=== PATIENT | female | born 1980 | race Caucasian/White ===

== ENCOUNTER 2024-05-10 15:28 | Outpatient (CLI) | payer OTHER, SELFPAY ==
--- NOTE | ~2024-05-10 | US_ITS ---
EXAMINATION: US soft tissue head and neck DATE: 05/10/2024 16:15 INDICATION: Personal history of other specified conditions. Hypothyroidism. TECHNIQUE: Multiple ultrasound images of the thyroid were obtained. COMPARISON: None. FINDINGS: The right thyroid lobe measures 4.2 x 2.0 x 1.3 cm. The left thyroid lobe measures 3.5 x 1.1 x 1.2 c m. The thyroid demonstrates heterogeneous hypoechogenicity. No discrete nodule. Vascularity is ruth l. There is a borderline-enlarged left submandibular lymph node. IMPRESSION: 1. Heterogeneous thyroid, likely chronic lymphocytic (Flaco) thyroiditis. 2. Borderline enlarged left submandibular lymph node, likely reactive. Reviewed, dictated and finalized at location A.
== END 2024-05-10 15:29 | disposition home or self-care (01) ==
LOC: ANHIMG 15:29
PROVIDERS: PCP Family Medicine; Visit Provider Family Medicine
DX: E07.89 Other specified disorders of thyroid (principal); R59.0 Localized enlarged lymph nodes; Z87.898 Personal history of other specified conditions
CPT/HCPCS: 76536

== ENCOUNTER 2024-10-02 00:28 | Day surgery (SDC) | payer BC, SELFPAY ==
[2024-09-20 15:17] VITALS: BMI 39.7
--- OUTSIDE RECORDS SUMMARY | 2024-10-02 00:30 | XMS_ITS | Clinical Summary ---
Author Organization [facility] Address [address] [place] [address] Phone Care Team Providers Care Plastic Boat Patcher Name Role Phone Thomas Patel MD Primary Care Provider [phone] Allergies No known active allergies Medications metoprolol tartrate (LOPRESSOR) 25 MG Tablet Take 25 mg by mouth 2 times daily. Active ibuprofen (MOTRIN) 800 MG Tablet Take 800 mg by mouth every 8 hours as needed. Active levothyroxine (SYNTHROID) 200 MCG Tablet Take 200 mcg by mouth daily. Active ferrous gluconate 324 (38 Fe) MG Tablet Take 324 mg by mouth 2 times daily. Active Immunizations Immunization Administration Dates Next Due Covid-19, Mrna, Lnp-s, Pf, 30 Mcg/0.3 Ml Dose (Kenneth beltran) 12/05/2020,11/13/2020 Social History Tobacco Use Types Packs/Day Years Used Date Smoking Tobacco: Never Smokeless Tobacco: Never Alcohol Use Standard Drinks/Week Comments Not Currently 0 (1 standard drink = 0.6 oz pur e alcohol) Comments Unknown Sex and Gender Information Value Date Recorded Sex Assigned at Not on file Legal Sex Female 10:30 PM CDT Gender Identity Not on file Sexual Orientation Not on file Last Filed Vital Signs Vital Sign Reading Time Taken Comments Blood Pressure 134/83 03/07/2021 10:03 AM CDT Pulse 81 03/07/2021 8:56 AM CDT Temperature 36.1 C (97 F) 03/07/2021 10:03 AM CDT Respiratory Rate 20 03/07/2021 10:0 3 AM CDT Oxygen Saturation 100% 03/07/2021 10: 03 AM CDT Inhaled Oxygen Concentration - - Weight 131.3 kg (289 lb 7.4 oz) 03/07/2021 5:36 AM CDT Height 180.3 cm (5' 11 ) 03/07/2021 5:36 AM CDT Body Mass Index 40.37 03/07/2021 5:36 AM CDT Plan of Treatment Health Maintenance Due Date Last Done Comments Hepatitis C Virus (HCV) Screening 1982 TdaP Immunization 1982 Pap Smear 2003 Cervical Cancer Screening (CCS) 01/11/2012 HPV/Cotest 01/11/2012 Discussion re Starting/Frequency of Mammograms 2022 Influenza Immunization (#1) 2024 SARS-COV-2 Immunization ( season) 2024 12/05/2020, 11/13/2020 Respiratory Syncytial Virus (RSV) Immunization (Adult) (1 - 1-dose 75+ series) 2057 DTaP/Tdap/Td Immunization Discontinued 12/02/2004 Hepatitis B Immunization Completed 006, 12/30/2004, 01/26/2001 Meningococcal Immunization (ACWY) Aged Out No longer eligible based on patient's age to complete this topic Pneumococcal Immunization Combined Aged Out No longer eligible based on patient's age to complete this topic Rotavirus Immunization Aged Out No lo nger eligible based on patient's age to complete this topic Insurance mo9 (moKredit) mo9 (moKredit) * Guarantor: [facility] Account Type Relation to Patient Date of Phone Billing Address Institutional Other 1868 [phone] (Work) ATTN: ERIN GUZMAN [address] [place] [address] Care Teams Plastic Boat Patcher Relationship Specialty Start Date End Date Thomas Patel MD [address] [place] [address] PCP - General Internal Medicine 03/05/21
--- OUTSIDE RECORDS SUMMARY | 2024-10-02 00:30 | XMS_ITS | Encounter Summary ---
Author Organization [facility] Address [address] [facility] [place] [address] Phone Care Team Providers Care Filenet Architect Name Role Phone Thomas Patel MD Primary Care Provider [phone] Encounter Details Date Type Department Care Team (Latest Contact Info) Description 03/03/[address] [facility] Preop/Pacu II [address] [place] [address] Елена Montoya MD [address] [address] Preop testing (Primary Dx) Social History Tobacco Use Types Packs/Day Years Used Date Smoking Tobacco: Never Assessed Comments Unknown Sex and Gender Information Value Date Recorded Sex Assigned at Not on file Legal Sex Female 10:30 PM CDT Gender Identity Not on file Sexual Orientation Not on file COVID-19 Exposure Response Date Recorded In the last month, have you been in contact with someone who was confirmed or suspected to have Coronavirus / COVID-19? No / Unsure 03/05/2021 12:18 PM CDT documented as of this encounter Plan of Treatment Not on file documented as of this encounter Results * (ABNORMAL) HEMOGLOBIN (03/05/2021 1:07 PM CDT) HEMOGLOBIN (HGB) 9.0(L) 12.0 - 15.8 g/dL 03/05/2021 1:25 PM CDT [facility] Blood Venipuncture / Unknown 03/05/2021 1:07 PM CDT 03/05/2021 1:16 PM CDT us Elaine Craig WATER TECHNICIAN, SWITCHBOARD WIRER HEMATOLOGY ORDERABLES Fi nal Result [facility] [address] [place] [address], documented in this encounter Visit Diagnoses Diagnosis Preop testing- Primary Preoperative examination, unspecified documented in this encounter Care Teams Filenet Architect Relationship Specialty Start Date End Date Thomas Patel MD [address] [place] [address] PCP - General Internal Medicine 03/05/21 documented as of this encounter
--- OUTSIDE RECORDS SUMMARY | 2024-10-02 00:30 | XMS_ITS | Encounter Summary ---
Author Organization [facility] Address [address] [facility] [place] [address] Phone Care Team Providers Care Weight Inspector Name Role Phone Thomas Patel MD Primary Care Provider [phone] Encounter Details Date Type Department Care Team (Latest Contact Info) Description 03/03/2021 Transcribe Orders [facility] Preop/Pacu II [address] [place] [address] Елена Montoya MD [address] [address] Preop testing (Primary Dx) Social [...] documented as of this encounter Results * UR TEST QUAL (03/05/2021 1:07 PM CDT) PREG TEST,MONOCLONAL Negative 03/05/2021 1:34 PM CDT [facility] Comment:Urine specimens with low specific gravity may not contain banking representative levels of HCG. If is still suspected, a first morning urine specimen should be collected 48 hours later and tested. Urine Non-Phlebotomy Collection / Unknown 03/05/2021 1:07 PM CDT 03/05/2021 1:14 PM CDT us Елена Montoya MD URINE ORDERABLES Final Result [facility] [address] [place] [address], documented in this encounter Visit Diagnoses Diagnosis Preop testing- Primary Preoperative examination, unspecified documented in this encounter Care Teams Weight Inspector Relationship Specialty Start Date End Date Thomas Patel MD [address] [place], [place] [address] PCP - General Internal Medicine 03/05/21 documented as of this encounter
--- OUTSIDE RECORDS SUMMARY | 2024-10-02 00:30 | XMS_ITS | Encounter Summary ---
Author Organization [facility] Address [address] [facility] [place] [address] Phone Care Team Providers Care Corporate Consultant Name Role Phone Thomas Patel MD Primary Care Provider [phone] Encounter Details Date Type Department Care Team (Late st Contact Info) Description 09/23/2020 Lab Requisition [facility] [address] [place] [address] Thomas Patel MD [address] [place] [address] Social History Tobacco Use Types Packs/Day Years Used Date Smoking Tobacco: Never Assessed Comments Unknown Sex and Gender Information Value Date Recorded Sex Assigned at Not on file Legal Sex Female 10:30 PM CDT Gender Identity Not on file Sexual Orientation Not on file documented as of this encounter Plan of Treatment Not on file documented as of this encounter Procedures Procedure Name Priority Date/Time Associated Diagnosis Comments CBC WITH AUTO DIFFERENTIAL STAT 09/23/2020 9:[address] COMMISSIONER COMPLETE BLOOD COUNT (CBC) WITH DIFF Routine 09/23/2020 9:[address] COMMISSIONER documented in this encounter Results * (ABNORMAL) CBC WITH AUTO DIFFERENTIAL (09/23/2020 9:[address] COMMISSIONER) WBC 8.91 4.00 - 12.00 10(3)/mcL 09/23/2020 10:[address] COMMISSIONER [facility] RBC 4.76 3.80 - 5.30 10(6)/mcL 09/23/2020 10:[address] COMMISSIONER [facility] HEMOGLOBIN (HGB) 8.6(L) 12.0 - 15.8 g/dL 09/23/2020 10:43 AM [facility] HEMATOCRIT (HCT) 30.9(L) 36.0 - 47.0 % 09/23/2020 10:43 AM [facility] MCV 64.9(L) 82.0 - 96.0 fL 09/23/2020 10:43 AM [facility] MCH 18.1(L) 26.0 - 34.0 pg 09/23/2020 10:43 AM [facility] MCHC 27.8(L) 31.0 - 36.0 g/dL 09/23/2020 10:43 AM [facility] PLATELET COUNT 527(H) 140 - 440 10(3)/[facility] 09/23/2020 10:43 AM [facility] RDW 23.9(H) 11.8 - 15.5 % 09/23/2020 10:43 AM [facility] MPV 9.7 9.7 - 12.4 fL 09/23/2020 10:43 AM [facility] NEUTROPHILS 60.8 47.0 - 73.0 % 09/23/2020 10:43 AM [facility] LYMPHOCYTES 29.6 18.0 - 42.0 % 09/23/2020 10:43 AM [facility] MONOCYTES 7.4 4.0 - 12.0 % 09/23/2020 10:43 AM [facility] EOSINOPHILS 1.3 0.0 - 5.0 % 09/23/2020 10:43 AM [facility] BASOPHILS 0.9 0.0 - 1.0 % 09/23/2020 10:43 AM [facility] ABSOLUTE NEUTROPHILS 5.41 1.60 - 7.70 10(3)/mcL 09/23/2020 10:43 AM [facility] ABSOLUTE LYMPHOCYTES 2.64 1.30 - 3.20 10(3)/mcL 09/23/2020 10:43 AM [facility] ABSOLUTE MONOCYTES 0.66 0.20 - 1.00 10(3)/[facility] 09/23/2020 10:[address] COMMISSIONER [facility] ABSOLUTE EOSINOPHIL 0.12 0.00 - 0.40 10(3)/mcL 09/23/2020 10:[address] COMMISSIONER [facility] ABSOLUTE BASOPHILS 0.08 0.00 - 0.10 10(3)/mcL 09/23/2020 10:[address] COMMISSIONER [facility] NRBC PER 100 WBC 0 09/24/19 10:[address] COMMISSIONER [facility] RESULTS ARE CONSISTENT WITH PERIPHERAL SMEAR REVIEW Yes 09/23/2020 10:43 AM [facility] RBC MORPHOLOGY CONSISTENT WITH INDICES Yes 09/23/2020 10:43 AM [facility] POIKILOCYTOSIS 2+ 09/23/2020 10:43 AM [facility] TARGET Present 09/23/2020 10:43 AM [facility] Blood No Phlebotomy Charged / Unknown 09/23/2020 9:[address] COMMISSIONER 09/23/2020 9:[address] COMMISSIONER us Thomas Patel MD HEMATOLOGY ORDERABLES Final Res ult [facility] [address] [place] [address], documented in this encounter Visit Diagnoses Not on filedocumented in this encounter Care Teams Corporate Consultant Relationship Specialty Start Date End Date Thomas Patel MD [address] [place], [place] [address] PCP - General Internal Medicine 03/05/21 documented as of this encounter
--- OUTSIDE RECORDS SUMMARY | 2024-10-02 00:30 | XMS_ITS | Encounter Summary ---
Author Organization [facility] Address [address] [facility] [place] [address] Phone Care Team Providers Care Cafeteria Helper Name Role Phone Thomas Patel MD Primary Care Provider [phone] Encounter Details Date Type Department Care Team (Late st Contact Info) Description 03/03/2021 Transcribe Orders [facility] Pre[facility]Pacu II [address] [place] [address] Елена Montoya MD [address] [address] Social History Tobacco Use Types Packs/Day Years [...] on file documented as of this encounter Visit Diagnoses Not on filedocumented in this encounter Care Teams Cafeteria Helper Relationship Specialty Start Date End Date Thomas Patel MD [address] [place], [place] [address] PCP - General Internal Medicine 03/05/21 documented as of this encounter
[2024-10-02 08:09] VITALS: BP 127/85; PULSE 72; RESP 16; TEMP 35.9; O2SAT 100; BMI 40.0
[2024-10-02 08:16] LABS: BEDSIDEPREGUCG Negative (Negative)
--- NOTE | 2024-10-02 08:39 | PM.IMHP ---
H&P: HPI History of Present Illness Date/Time: 10/02/24 08:39 Chief Complaint: History of Crohn's disease -family history of colorectal cancer Narrative: the patient had an apparent right hemicolectomy at age 23, for Crohn's disease. She is currently not receiving any treatment and is asymptomatic from the GI standpoint. In addition, her father of colorectal cancer at age 65. This is her 1st colonoscopy. Review of Systems Review of Systems: All systems reviewed & are unremarkable except as noted in HPI and below [facility] Past Medical History Medical History (Updated 09/25/24 @ 09:22 by Luis Alfredo Sesay DO) Edema Hypertension Family History Family History (Updated 03/21/24 @ 11:19 by Rhona Goff CMA) Father Diabetes mellitus Hypertension Social History Social History (Updated 03/21/24 @ 11:17 by Rhona Goff CMA) Smoking status: Never smoker Alcohol intake: never Substance use: never Substance use type: does not use Other substance usage details: Answered yes on have you ever given yourself drugs with a needle Living arrangements: alone Meds Home Medications and Allergies Home Medications ?Medication ?Instructions ?Recorded ?Confirmed ?Type furosemide 20 mg tablet 20 mg PO DAILY #90 tabs 06/05/24 10/02/24 Rx levothyroxine 300 mcg tablet 300 mcg PO DAILY #90 tabs 06/05/24 10/02/24 Rx metformin 500 mg tablet 500 mg PO DAILY #180 tabs 06/05/24 10/02/24 Rx metoprolol tartrate 25 mg tablet 25 mg PO BID #180 tabs 06/05/24 10/02/24 Rx Allergies Allergy/AdvReac Type Severity Reaction Status Date / Time No Known Allergies Allergy Verified 10/02/24 08:07 Vital Signs Vital Signs - 24 hr 10/02/24 08:09 Temperature 96.7 F L Pulse Rate 72 Respiratory Rate 16 Blood Pressure 127/85 Pulse Oximetry 100 Oxygen Delivery Room Air Exam Const: General: cooperative and healthy appearing Resp: Effort & Inspection: normal respiratory effort and able to speak in complete sentences Auscultation: clear to auscultation bilaterally Cardio: Rate: regular rate Rhythm: regular rhythm GI: Inspection: normal to inspection GI Palp: No No hepatosplenomegaly present Auscultation: normal bowel sounds Rectal Exam: deferred Skin: General skin exam: normal color Psych: Appearance: grossly normal Mental Status: mental status grossly normal Assessment and Plan Assessment and plan (1) History of Crohn's disease: Code(s): Z87.19 - Personal history of other diseases of the digestive system Status: Acute Assessment and Plan: The patient is deemed a good candidate for the procedure. Consent signed. Will proceed.
--- NOTE | 2024-10-02 08:42 | WPDANESEPPF ---
Anes - Initial Pre Proc Eval Procedure: Operation Date: 10/02/24 09:30 Proposed Procedures p Colonoscopy - Yousuf Coy MD Date/Time: 10/02/24 08:42 Surgeon: Yousuf Coy MD Pre Op Diagnosis: hx of diseases of digestive system Patient Data Age: 44 Gender: F Height: 1.8 m Weight: 130.3 kg Last Vital Signs Temp 35.9 C L 10/02/24 08:09 Pulse 72 10/02/24 08:09 Resp 16 10/02/24 08:09 BP 127/85 10/02/24 08:09 Pulse Ox 100 10/02/24 08:09 O2 Del Method Room Air 10/02/24 08:09 Allergies Allergy/AdvReac Type Severity Reaction Status Date / Time No Known Allergies Allergy Verified 10/02/24 08:07 Home Medications ?Medication ?Instructions ?Recorded ?Confirmed ?Type furosemide 20 mg tablet 20 mg PO DAILY #90 tabs 06/05/24 10/02/24 Rx levothyroxine 300 mcg tablet 300 mcg PO DAILY #90 tabs 06/05/24 10/02/24 Rx metformin 500 mg tablet 500 mg PO DAILY #180 tabs 06/05/24 10/02/24 Rx metoprolol tartrate 25 mg tablet 25 mg PO BID #180 tabs 06/05/24 10/02/24 Rx Laboratory Tests 10/02/24 08:09 POC Urine HCG, Qual Negative (Negative) Patient hx anesthesia problems: none Family hx anesthesia problems: none Results Review: All pre-operative results and documents have been reviewed as part of the pre-operative evaluation. [facility] Past Medical History Medical History (Updated 10/02/24 @ 08:42 by Dat Rowan MD) History of Crohn's disease Edema Hypertension Surgical History Surgical History (Updated 10/02/24 @ 08:42 by Dat Rowan MD) History of colon resection Family History Family History (Updated 03/21/24 @ 11:19 by Rhona Goff CMA) Father Diabetes mellitus Hypertension Social History Social History (Updated 03/21/24 @ 11:17 by Rhona Goff CMA) Smoking status: Never smoker Alcohol intake: never Substance use: never Substance use type: does not use Other substance usage details: Answered yes on have you ever given yourself drugs with a needle Living arrangements: alone Anes - Eval Final PreProcedure Day of Procedure 10/02/24 08:42 Patient weight: morbidly obese Heart: regular rate and rhythm Lungs: clear to auscultation Airway: Mallampati scale class II Neurological: alert and oriented Last oral intake: >/= 8 hours ASA classification: III Emergent: no Anesthetic plan: proceed Anesthesia type and monitoring: general GIVS and standard monitoring Results Review: All pre-operative results and documents have been reviewed as part of the pre-operative evaluation. Informed Consent: The patient's anesthetic plan and its attendant risks and benefits were discussed with the patient/family/POA. Questions were solicited and answers provided to the satisfaction of the patient/family/POA.
[2024-10-02] MEDS: LACTATED RINGERS 1,000 ML 150 ML IV CONT (08:46)
[2024-10-02 09:08] VITALS: BP 123/82; PULSE 74; RESP 20; O2SAT 96
[2024-10-02 09:18] VITALS: BP 127/85; PULSE 68; RESP 20; O2SAT 97
[2024-10-02 09:28] VITALS: BP 108/80; PULSE 72; RESP 18; O2SAT 99
== END 2024-10-02 09:32 | disposition home or self-care (01) ==
PROVIDERS: Anesthesiology; PCP Family Medicine; Referring Provider Family Medicine; Visit Provider Internal Medicine Gastroenterology
PROC: 0DJD8ZZ Inspection of Lower Intestinal Tract, Via Natural or Artificial Opening Endoscopic (ICD-10-PCS; CPT 45378; principal; 2024-10-02 09:30)
DX: Z12.11 Encounter for screening for malignant neoplasm of colon (principal); I10 Essential (primary) hypertension; E66.01 Morbid (severe) obesity due to excess calories; Z68.41 Body mass index [BMI] 40.0-44.9, adult; Z79.84 Long term (current) use of oral hypoglycemic drugs; Z98.890 Other specified postprocedural states; Z98.0 Intestinal bypass and anastomosis status; Z90.49 Acquired absence of other specified parts of digestive tract; Z87.19 Personal history of other diseases of the digestive system; Z80.0 Family history of malignant neoplasm of digestive organs
CPT/HCPCS: 45378; J2704; J7120

== ENCOUNTER 2024-10-12 09:45 | Outpatient (CLI) | payer BC, SELFPAY ==
--- NOTE | ~2024-10-12 | MR_ITS ---
EXAMINATION: MR ankle LT wo con, MR foot LT wo con DATE: 10/12/2024 11:00 INDICATION: Left foot pain TECHNIQUE: 1. Magnetic resonance imaging (MRI) of the affected ankle/hindfoot was performed without intravenous contrast. Sequences included sagittal, coronal, and axial PD-weighted FSE and PD-weighted FS FSE. 2. MRI of the affected fore/mid foot was performed without intravenous contrast. Sequences included s agittal T1-weighted FSE, sagittal fluid sensitive FSE STIR, coronal PD-weighted FS FSE, coronal T1-we ighted FSE, axial PD-weighted FS FSE, and axial PD-weighted FSE. COMPARISON: None. FINDINGS: Medial ankle ligaments: Chronic sprains of the deep and superficial deltoid ligament which appear thickened with slightly dis organized appearance to the ligament fibers and with heterotopic ossification at the sites of osseous attachment. No significant surrounding edema to suggest acute injury. Lateral ankle ligaments: Interstitial scarring bullous chronic sprain of the anterior talofibular ligament with some heterotop ic ossification at the talar insertion of the ligament. The Anterior and posterior inferior tibiofibu lar, posterior talofibular as well as the calcaneofibular ligaments are normal. Tendons: Small enthesophytes and minimal enthesopathic ossification at the distal insertion of the. Achilles t endon. There is minimal increased signal in the distal tendon consistent with mild tendinosis. Mild t enosynovitis along the normal-appearing tibialis posterior and flexor digitorum longus tendons. The f lexor hallucis longus tendon is normal. Fusiform thickening consistent with mild tendinosis of the pe roneus longus tendon stenting at the level of the tip of the lateral malleolus. Moderate tendinopathy and longitudinal split tearing of the peroneus brevis tendon beginning above level of the retromalle olar groove and extending distally to the level of the anterior process of the calcaneus. The extenso r tendons of the foot/ankle are normal. Plantar fascia: Mild enthesopathy at the calcaneal origin of the central component of the plantar aponeurosis. No ass ociated marrow or surrounding soft tissue edema to suggest acute plantar fasciitis. Bones/other: Mild hallux valgus. Associated bunion with mild cystic and hypertrophic change at the medial head of the first metatarsal. Bone alignment is otherwise normal. No fracture or pathologic marrow replacing process. Polyarticular osteoarthritis, and mild to moderate severity at the first metatarsophalangeal joint and with high-grade chondromalacia and subarticular edema and cystlike changes at the third an d fourth tarsal metatarsal and naviculocuneiform articulations. Additional mild osteoarthritis at rem aining tarsal metatarsal joints and several of the interphalangeal joints. Lisfranc ligament complex and collateral ligament complex at the tarsometatarsal joints are normal. Intrinsic musculature of th e foot is unremarkable. Fluid: Physiologic amount fluid in the joint spaces. No other abnormal fluid collections. IMPRESSION: 1. Scarring consistent with chronic sprains of the deep and superficial deltoid ligament and anterior talofibular ligament. 2. Tendinopathy of the peroneus longus and brevis tendons with longitudinal split tear of the peroneu s brevis tendon. 3. 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 4. Mild hallux valgus with mild bunion. 5. Minimal Achilles and plantar calcaneal enthesopathy. Reviewed, dictated and finalized at location B. IMPRESSION: 1. Scarring consistent with chronic sprains of the deep and superficial deltoid ligament and anterior talofibular ligament. 2. Tendinopathy of the peroneus longus and brevis tendons with longitudinal spl it tear of the peroneus brevis tendon. 3. 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 4. Mild hallux valgus with mild bunion. 5. Minimal Achilles and plantar calcaneal enthesopathy.
== END 2024-10-12 09:46 | disposition home or self-care (01) ==
PROVIDERS: PCP Family Medicine; Visit Provider Family Medicine
DX: M20.12 Hallux valgus (acquired), left foot (principal); M19.072 Primary osteoarthritis, left ankle and foot
CPT/HCPCS: 73718; 73721

== ENCOUNTER 2025-02-15 07:10 | Outpatient (CLI) | payer BC, SELFPAY ==
--- NOTE | ~2025-02-15 | US_ITS ---
US abdomen limited 02/15/2025 08:20 Indication: Umbilical hernia without obstruction or gangrene Procedure: Ultrasound of the abdominal wall (region of palpable abnormality right. Comparison: No prior studies for comparison. Findings: At the site of clinical concern, there is focal defect in the abdominal wall with herniatio n of heterogeneous soft tissue. The herniated soft tissue demonstrates motility during the examinatio n with changes in position and Valsalva maneuver. Herniated component measures 4.6 x 4.1 x 2.2 cm. Th e appearance is suggestive of a herniated fat and/or soft tissue without definite palpable peristalsi s identified. No definite fluid collection. Impression: 1: Focal abdominal wall defect with herniation of heterogeneous soft tissue demonstrating motility du ring the examination, most likely representing abdominal wall hernia containing fat or possibly other soft tissue. Differential diagnosis includes bowel containing hernia, incarcerated fat and other abd ominal wall mass with motion transmitted through defect. Recommend correlation with clinical findings to confirm hernia location. Recommend CT abdomen pelvis with contrast. Consider surgical referral. Reviewed, dictated and finalized at location A. Impression: 1: Focal abdominal wall defect with herniation of heterogeneous soft tissue dem onstrating motility during the examination, most likely representing abdominal wall hernia containing fat or possibly other soft tissue. Differential diagnosi s includes bowel containing hernia, incarcerated fat and other abdominal wall m ass with motion transmitted through defect. Recommend correlation with clinical findings to confirm hernia location. Recommend CT abdomen pelvis with contrast . Consider surgical referral.
--- OUTSIDE RECORDS SUMMARY | 2025-02-15 07:13 | XMS_ITS | Patient Health Record ---
Author Organization [facility] Address [address] [place], [place] [address] Care Team Providers Care Ui Architect Name Role Phone DOMINICK Slaughter Unavailable [phone] Sangeeta Vicente Unavailable Unavailable Reason For Referral No Information Medications Medication SIG (Take, Route, Frequency, Duration) Notes Start Date End Date Status buprenorphine 2 MG / naloxone 0.5 MG Sublingual Film [Suboxone] buprenorphine 2 MG / naloxone 0.5 MG Sublingual Film [Suboxone]Original Medicationbuprenorphine 2 MG / naloxone 0.5 MG Sublingual Film [Suboxone] *Reorder from [employer]UC[employer]Me for eRx and Interaction Alerts* 2 Active fexofenadine hydrochloride 180 MG Oral Tablet [Rossy] ORAL fexofenadine hydrochloride 180 MG Oral Tablet [Rossy]Original Medicationfexofenadine hydrochloride 180 MG Oral Tablet [Rossy] *Reorder from [employer]UCESAlertMe for eRx and Interaction Alerts* 2 Active Plan Of Treatment No Information
--- OUTSIDE RECORDS SUMMARY | 2025-02-15 07:13 | XMS_ITS | Patient Health Record ---
Author Organization [facility] Address [address] [place] [address] Support Name Relationship Address Phone Elaine Barillas Emergency Contact [address] [facility], [address] Kaila Barillas Guarantor Unknown Reason For Referral No Information Plan Of Treatment No Information
--- OUTSIDE RECORDS SUMMARY | 2025-02-15 07:13 | XMS_ITS | Encounter Summary ---
Author Organization [facility] Address [address] [facility] [place] [address] Phone Care Team Providers Care Sloop Captain Name Role Phone Thomas Patel MD Primary Care Provider [phone] Encounter Details Date Type Department Care Team (Latest Contact Info) Description 03/03/2021 Transcribe Orders [facility] Preop/Pacu II [address] [place] [address] Елена Montoya MD [address] [address] Preop testing (Primary Dx) Social [...] PREG TEST,MONOCLONAL Negative 03/05/2021 1:34 PM CDT [facility] Comment:Urine specimens with low specific gravity may not contain bilingual inside sales representative levels of HCG. If is still suspected, a first morning urine specimen should be collected 48 hours later and tested. Urine Non-Phlebotomy Collection / Unknown 03/05/2021 1:07 PM CDT 03/05/2021 1:14 PM CDT us Елена Montoya MD URINE ORDERABLES Final Result [facility] [address] [place] [address], documented in this encounter Visit Diagnoses Diagnosis Preop testing- Primary Preoperative examination, unspecified documented in this encounter Care Teams Sloop Captain Relationship Specialty Start Date End Date Thomas Patel MD [address] [place], [place] [address] PCP - General Internal Medicine 03/05/21 documented as of this encounter
--- OUTSIDE RECORDS SUMMARY | 2025-02-15 07:13 | XMS_ITS | Clinical Summary ---
Author Organization [facility] Address [address] [place] [address] Phone Care Team Providers Care Assessment Coordinator Name Role Phone Thomas Patel MD Primary Care Provider [phone] Allergies No known active allergies Medications metoprolol [...] 5:36 AM CDT Height 180.3 cm (5' 11) 03/07/2021 5:36 AM CDT Body Mass Index 40.37 03/07/2021 5:36 AM CDT Plan of Treatment Health Maintenance Due Date Last Done Comments Hepatitis C Virus (HCV) Screening 1982 TdaP Immunization 1982 Human Papillomavirus (HPV) Immunization (1 - 3-dose series) 1997 Pap Smear 2003 Cervical Cancer Screening (CCS) 01/11/2012 HPV/Cotest 01/11/2012 SARS-COV-2 Immunization ( season) 2024 12/05/2020, 11/13/2020 Influenza Immunization (#1) 2025 Respiratory Syncytial Virus (RSV) Immunization (Adult) (1 [...] patient's age to complete this topic Insurance [employer] * Guarantor: [facility] Account Type Relation to Patient Date of Phone Billing Address Institutional Other 1868 [phone] (Work) ATTN: ERIN GUZMAN [address] [place] [address] Care Teams Assessment Coordinator Relationship Specialty Start Date End Date Thomas Patel MD [address] [place] [address] PCP - General Internal Medicine 03/05/21
--- OUTSIDE RECORDS SUMMARY | 2025-02-15 07:13 | XMS_ITS | Encounter Summary ---
Author Organization [facility] Address [address] [facility] [address] Phone Care Team Providers Care Lemon Picker Name Role Phone Thomas Patel MD Primary Care Provider [phone] Encounter Details Date Type Department Care Team (Late st Contact Info) Description 09/23/2020 Lab Requisition [facility] [address] [place] [address] Thomas Patel MD [address] [place] [address] Social History Tobacco Use Types [...] WITH AUTO DIFFERENTIAL STAT 09/23/2020 9:00 AM TERMITE TREATER COMPLETE BLOOD COUNT (CBC) WITH DIFF Routine 09/23/2020 9:00 AM TERMITE TREATER documented in this encounter Results * (ABNORMAL) CBC WITH AUTO DIFFERENTIAL (09/23/2020 9:00 AM TERMITE TREATER) WBC 8.91 4.00 - 12.00 10(3)/mcL 09/23/2020 10:43 AM TERMITE TREATER [facility] RBC 4.76 3.80 - 5.30 10(6)/mcL 09/23/2020 10:43 AM TERMITE TREATER [facility] HEMOGLOBIN (HGB) 8.6(L) 12.0 - 15.8 g/dL 09/23/2020 10:43 AM [facility] HEMATOCRIT (HCT) 30.9(L) 36.0 - 47.0 % 09/23/2020 10:43 AM [facility] MCV 64.9(L) 82.0 - 96.0 fL 09/23/2020 10:43 AM [facility] MCH 18.1(L) 26.0 - 34.0 pg 09/23/2020 10:43 AM [facility] MCHC 27.8(L) 31.0 - 36.0 g/dL 09/23/2020 10:43 AM [facility] PLATELET COUNT 527(H) 140 - 440 10(3)/[facility] 09/23/2020 10:43 AM [facility] RDW 23.9(H) 11.8 - 15.5 % 09/23/2020 10:43 AM [facility] MPV 9.7 9.7 - 12.4 fL 09/23/2020 10:43 AM [facility] NEUTROPHILS 60.8 47.0 - 73.0 % 09/23/2020 10:43 AM [facility] LYMPHOCYTES 29.6 18.0 - 42.0 % 09/23/2020 10:43 AM [facility] MONOCYTES 7.4 4.0 - 12.0 % 09/23/2020 10:43 AM [facility] EOSINOPHILS 1.3 0.0 - 5.0 % 09/23/2020 10:43 AM [facility] BASOPHILS 0.9 0.0 - 1.0 % 09/23/2020 10:43 AM [facility] ABSOLUTE NEUTROPHILS 5.41 1.60 - 7.70 10(3)/mcL 09/23/2020 10:43 AM [facility] ABSOLUTE LYMPHOCYTES 2.64 1.30 - 3.20 10(3)/mcL 09/23/2020 10:43 AM [facility] ABSOLUTE MONOCYTES 0.66 0.20 - 1.00 10(3)/[facility] 09/23/2020 10:43 AM TERMITE TREATER [facility] ABSOLUTE EOSINOPHIL 0.12 0.00 - 0.40 10(3)/mcL 09/23/2020 10:43 AM TERMITE TREATER [facility] ABSOLUTE BASOPHILS 0.08 0.00 - 0.10 10(3)/mcL 09/23/2020 10:43 AM TERMITE TREATER [facility] NRBC PER 100 WBC 0 09/24/19 10:43 AM TERMITE TREATER [facility] RESULTS ARE CONSISTENT WITH PERIPHERAL SMEAR REVIEW Yes 09/23/2020 10:43 AM [facility] RBC MORPHOLOGY CONSISTENT WITH INDICES Yes 09/23/2020 10:43 AM [facility] POIKILOCYTOSIS 2+ 09/23/2020 10:43 AM [facility] TARGET Present 09/23/2020 10:43 AM [facility] Blood No Phlebotomy Charged / Unknown 09/23/2020 9:00 AM TERMITE TREATER 09/23/2020 9:52 AM TERMITE TREATER us Thomas Patel MD HEMATOLOGY ORDERABLES Final Res ult [facility] [address] [place] [address], documented in this encounter Visit Diagnoses Not on filedocumented in this encounter Care Teams Lemon Picker Relationship Specialty Start Date End Date Thomas Patel MD [address] [place], [place] [address] PCP - General Internal Medicine 03/05/21 documented as of this encounter
--- OUTSIDE RECORDS SUMMARY | 2025-02-15 07:14 | XMS_ITS | Encounter Summary ---
Author Organization [facility] Address [address] [facility] [place] [address] Phone Care Team Providers Care Automotive Artist Name Role Phone Thomas Patel MD Primary Care Provider [phone] Encounter Details Date Type Department Care Team (Latest Contact Info) Description 03/03/2021 Transcribe Orders [facility] Preop/Pacu II [address] [place] [address] Елена Montoya MD [address] [address] Preop testing (Primary Dx) Social [...] - 15.8 g/dL 03/05/2021 1:25 PM CDT [facility] Blood Venipuncture / Unknown 03/05/2021 1:07 PM CDT 03/05/2021 1:16 PM CDT us Elaine Craig ASSORTER, C.O.D. CLERK HEMATOLOGY ORDERABLES Fi nal Result [facility] [address] [place] [address], documented in this encounter Visit Diagnoses Diagnosis Preop testing- Primary Preoperative examination, unspecified documented in this encounter Care Teams Automotive Artist Relationship Specialty Start Date End Date Thomas Patel MD [address] [place] [address] PCP - General Internal Medicine 03/05/21 documented as of this encounter
--- OUTSIDE RECORDS SUMMARY | 2025-02-15 07:14 | XMS_ITS | Encounter Summary ---
Author Organization [facility] Address [address] [facility] [place] [address] Phone Care Team Providers Care Diabetic Educator Name Role Phone Thomas Patel MD Primary Care Provider [phone] Encounter Details Date Type Department Care Team (Late st Contact Info) Description 03/03/2021 [facility] [address] [place] [address] Елена Montoya MD [address] [address] Social History Tobacco Use Types [...] on filedocumented in this encounter Care Teams Diabetic Educator Relationship Specialty Start Date End Date Thomas Patel MD [address] [place], [place] [address] PCP - General Internal Medicine 03/05/21 documented as of this encounter
== END 2025-02-15 07:11 | disposition home or self-care (01) ==
PROVIDERS: PCP Family Medicine; Visit Provider Nurse Practitioner Family
DX: K42.9 Umbilical hernia without obstruction or gangrene (principal)
CPT/HCPCS: 76705

== ENCOUNTER 2025-02-22 12:53 | Outpatient (CLI) | payer BC, SELFPAY ==
--- NOTE | 2025-02-22 | ECG_ITS ---
Test Date: 2025-02-22 13:14:38 Measurements Intervals [place] Rate: 61 P: 29 MN: 156 QRS: 0 QRSD: 90 T: 7 QT: 412 QTc: 417 Interpretive Statements SINUS RHYTHM INCOMPLETE RIGHT BUNDLE BRANCH BLOCK LOW QRS VOLTAGE IN PRECORDIAL LEADS CONSIDER INFERIOR INFARCT, AGE INDETERMINATE BASELINE ARTIFACT- V1-V2 ABNORMAL ECG No previous ECG available for comparison Electronically Signed On 02-22-2025 13:32:17 CDT by Master Lemus D.O.
--- OUTSIDE RECORDS SUMMARY | 2025-02-22 13:02 | XMS_ITS | Encounter Summary ---
Author Organization [facility] Address [address] [facility] [place] [address] Phone Care Team Providers Care Grader Green Meat Name Role Phone Thomas Patel MD Primary Care Provider [phone] Encounter Details Date Type Department Care Team (Late st Contact Info) Description 09/23/2020 Lab Requisition [facility] [address] [place] [address] Thomas Patel MD [address] [place] [address] Social History Tobacco Use Types [...] WITH AUTO DIFFERENTIAL STAT 09/23/2020 9:00 AM SALES FLOOR ASSOCIATE COMPLETE BLOOD COUNT (CBC) WITH DIFF Routine 09/23/2020 9:00 AM SALES FLOOR ASSOCIATE documented in this encounter Results * (ABNORMAL) CBC WITH AUTO DIFFERENTIAL (09/23/2020 9:00 AM SALES FLOOR ASSOCIATE) WBC 8.91 4.00 - 12.00 10(3)/mcL 09/23/2020 10:43 AM SALES FLOOR ASSOCIATE [facility] RBC 4.76 3.80 - 5.30 10(6)/mcL 09/23/2020 10:43 AM SALES FLOOR ASSOCIATE [facility] HEMOGLOBIN (HGB) 8.6(L) 12.0 - 15.8 g/dL 09/23/2020 10:43 AM [facility] HEMATOCRIT (HCT) 30.9(L) 36.0 - 47.0 % 09/23/2020 10:43 AM [facility] MCV 64.9(L) 82.0 - 96.0 fL 09/23/2020 10:43 AM [facility] MCH 18.1(L) 26.0 - 34.0 pg 09/23/2020 10:43 AM [facility] MCHC 27.8(L) 31.0 - 36.0 g/dL 09/23/2020 10:43 AM [facility] PLATELET COUNT 527(H) 140 - 440 10(3)/[facility] 09/23/2020 10:43 AM [facility] RDW 23.9(H) 11.8 - 15.5 % 09/23/2020 10:43 AM [facility] MPV 9.7 9.7 - 12.4 fL 09/23/2020 10:43 AM [facility] NEUTROPHILS 60.8 47.0 - 73.0 % 09/23/2020 10:43 AM [facility] LYMPHOCYTES 29.6 18.0 - 42.0 % 09/23/2020 10:43 AM [facility] MONOCYTES 7.4 4.0 - 12.0 % 09/23/2020 10:43 AM [facility] EOSINOPHILS 1.3 0.0 - 5.0 % 09/23/2020 10:43 AM [facility] BASOPHILS 0.9 0.0 - 1.0 % 09/23/2020 10:43 AM [facility] ABSOLUTE NEUTROPHILS 5.41 1.60 - 7.70 10(3)/mcL 09/23/2020 10:43 AM [facility] ABSOLUTE LYMPHOCYTES 2.64 1.30 - 3.20 10(3)/mcL 09/23/2020 10:43 AM [facility] ABSOLUTE MONOCYTES 0.66 0.20 - 1.00 10(3)/[facility] 09/23/2020 10:43 AM SALES FLOOR ASSOCIATE [facility] ABSOLUTE EOSINOPHIL 0.12 0.00 - 0.40 10(3)/mcL 09/23/2020 10:43 AM SALES FLOOR ASSOCIATE [facility] ABSOLUTE BASOPHILS 0.08 0.00 - 0.10 10(3)/mcL 09/23/2020 10:43 AM SALES FLOOR ASSOCIATE [facility] NRBC PER 100 WBC 0 09/24/19 10:43 AM SALES FLOOR ASSOCIATE [facility] RESULTS ARE CONSISTENT WITH PERIPHERAL SMEAR REVIEW Yes 09/23/2020 10:43 AM [facility] RBC MORPHOLOGY CONSISTENT WITH INDICES Yes 09/23/2020 10:43 AM [facility] POIKILOCYTOSIS 2+ 09/23/2020 10:43 AM [facility] TARGET Present 09/23/2020 10:43 AM [facility] Blood No Phlebotomy Charged / Unknown 09/23/2020 9:00 AM SALES FLOOR ASSOCIATE 09/23/2020 9:52 AM SALES FLOOR ASSOCIATE us Thomas Patel MD HEMATOLOGY ORDERABLES Final Res ult [facility] [address] [place] [address], documented in this encounter Visit Diagnoses Not on filedocumented in this encounter Care Teams Grader Green Meat Relationship Specialty Start Date End Date Thomas Patel MD [address] [place], [place] [address] PCP - General Internal Medicine 03/05/21 documented as of this encounter
--- OUTSIDE RECORDS SUMMARY | 2025-02-22 13:02 | XMS_ITS | Encounter Summary ---
Author Organization [facility] Address [address] [facility] [place] [address] Phone Care Team Providers Care Ground Control Approach Technician Name Role Phone Thomas Patel MD Primary Care Provider [phone] Encounter Details Date Type Department Care Team (Latest Contact Info) Description 03/03/2021 Transcribe Orders [facility] Preop/Pacu II [address] [place] [address] Елена Montoya MD [address] [address] Preop testing (Primary Dx) Social [...] PREG TEST,MONOCLONAL Negative 03/05/2021 1:[address] [facility] Comment:Urine specimens with low specific gravity may not contain inside sales account representative levels of HCG. If is still suspected, a first morning urine specimen should be collected 48 hours later and tested. Urine Non-Phlebotomy Collection / Unknown 03/05/2021 1:07 PM CDT 03/05/2021 1:14 PM CDT us Елена Montoya MD URINE ORDERABLES Final Result [facility] [address] [place] [address], documented in this encounter Visit Diagnoses Diagnosis Preop testing- Primary Preoperative examination, unspecified documented in this encounter Care Teams Ground Control Approach Technician Relationship Specialty Start Date End Date Thomas Patel MD [address] [place], [place] [address] PCP - General Internal Medicine 03/05/21 documented as of this encounter
--- OUTSIDE RECORDS SUMMARY | 2025-02-22 13:02 | XMS_ITS | Encounter Summary ---
Author Organization [facility] Address [address] [facility] [place] [address] Phone Care Team Providers Care Stars Coordinator Name Role Phone Thomas Patel MD Primary Care Provider [phone] Encounter Details Date Type Department Care Team (Late st Contact Info) Description 03/03/2021 Trans[facility] [address] [place] [address] Елена Montoya MD [address] [address] Social History Tobacco Use Types [...] on filedocumented in this encounter Care Teams Stars Coordinator Relationship Specialty Start Date End Date Thomas Patel MD [address] [place], [place] [address] PCP - General Internal Medicine 03/05/21 documented as of this encounter
--- OUTSIDE RECORDS SUMMARY | 2025-02-22 13:02 | XMS_ITS | Clinical Summary ---
Author Organization [facility] Address [address] [place] [address] Phone Care Team Providers Care Personal Care Worker Name Role Phone Thomas Patel MD Primary Care Provider [phone] Allergies No known active allergies Medications metoprolol [...] 1982 TdaP Immunization 1982 Pap Smear 2003 Human Papillomavirus (HPV) Immunization (1 - 3-dose SCDM series) 2009 Cervical Cancer Screening (CCS) 01/11/2012 HPV/Cotest 01/11/2012 [...] patient's age to [place] [address] [employer] * Guarantor: [facility] Account Type Relation to Patient Date of Phone Billing Address Institutional Other 1868 [phone] (Work) ATTN: ERIN GUZMAN [address] [place] [address] Care Teams Personal Care Worker Relationship Specialty Start Date End Date Thomas Patel MD [address] [place] [address] PCP - General Internal Medicine 03/05/21
--- OUTSIDE RECORDS SUMMARY | 2025-02-22 13:02 | XMS_ITS | Encounter Summary ---
Author Organization [facility] Address [address] [facility] [address] Phone Care Team Providers Care Typing Element Machine Operator Name Role Phone Thomas Patel MD Primary Care Provider [phone] Encounter Details Date Type Department Care Team (Latest Contact Info) Description 03/03/2021 Transcribe Orders [facility] Preop/Pacu II [address] [place] [address] Елена Montoya MD [address] [address] Preop testing (Primary Dx) Social [...] - 15.8 g/dL 03/05/2021 1:25 PM [facility]T [facility] Blood Venipuncture / Unknown 03/05/2021 1:07 PM CDT 03/05/2021 1:16 PM CDT us Elaine Craig ENROBER, RIB KNITTER HEMATOLOGY ORDERABLES Fi nal Result [facility] [address] [place] [address], documented in this encounter Visit Diagnoses Diagnosis Preop testing- Primary Preoperative examination, unspecified documented in this encounter Care Teams Typing Element Machine Operator Relationship Specialty Start Date End Date Thomas Patel MD [address] [place] [address] PCP - General Internal Medicine 03/05/21 documented as of this encounter
== END 2025-02-22 12:54 | disposition home or self-care (01) ==
LOC: ANHCARD 12:55
PROVIDERS: PCP Family Medicine; Visit Provider Podiatrist Foot & Ankle Surgery
DX: Z01.818 Encounter for other preprocedural examination (principal)
CPT/HCPCS: 93005

== ENCOUNTER 2025-03-21 13:54 | Outpatient (CLI) | payer BC, SELFPAY ==
--- NOTE | ~2025-03-21 | CT_ITS ---
CT ABDOMEN AND PELVIS WITHOUT CONTRAST Clinical History: K43.0 - Incisional hernia with obstruction, without gangrene Comparison: No recent comparison Technique: Unenhanced axial images lung bases to symphysis pubis Coronal, sagittal reformats CT images acquired with automatic exposure control for dose reduction DLP: 1599 mGy-cm Findings: Without intravenous contrast, sensitivity for detecting visceral parenchymal abnormalities decreased. Lung bases: Clear. Visualized heart and pericardium: Unremarkable. Liver: Unremarkable. Gallbladder: Cholecystectomy. Spleen: Unremarkable. Pancreas: Unremarkable. Adrenal glands: Unremarkable. Kidneys: Right kidney- No hydronephrosis. No renal stones. Left kidney- No hydronephrosis. No renal stones. Tiny cortical defect versus possible AML Distal esophagus/stomach: Unremarkable. Small bowel loops: Normal caliber and wall thickness. Colon: Normal caliber and wall thickness. Appendectomy. Nodes: No enlarged nodes. Peritoneum: No ascites. No free intraperitoneal air. Urinary bladder: Unremarkable. Uterus: Unremarkable. Adnexa: No masses. Bones: No acute bony abnormality. Soft tissues: Umbilical hernia with fat. Paraumbilical hernia with fat. 2 supraumbilical hernias with fat. Unopacified abdominal aorta: No aneurysmal dilatation. IMPRESSION: 1. 4 small ventral hernias all containing fat, one of which is umbilical. No findings of panniculitis or fat strangulation. 2. Otherwise no acute abnormality. Reviewed, dictated and finalized at location R. IMPRESSION: 1. 4 small ventral hernias all containing fat, one of which is umbilical. No f indings of panniculitis or fat strangulation. 2. Otherwise no acute abnormality.
--- OUTSIDE RECORDS SUMMARY | 2025-03-21 15:16 | XMS_ITS | Patient Health Record ---
Author Organization [facility] Address [address] [place] [address] Support Name Relationship Address Phone Elaine Barillas Emergency Contact [address] [facility], [address] Kaila Barillas Guarantor Unknown Reason For Referral No Information Plan Of Treatment No Information
--- OUTSIDE RECORDS SUMMARY | 2025-03-21 15:17 | XMS_ITS | Encounter Summary ---
Author Organization [facility] Address [address] [facility] [place] [address] Phone Care Team Providers Care Fondant Puff Maker Name Role Phone Thomas Patel MD Primary Care Provider [phone] Encounter Details Date Type Department Care Team (Latest Contact Info) Description 03/03/2021 Transcribe Orders [facility] Preop/Pacu II [address] [place] [address] Елена Montoya MD [address] [address] Preop testing (Primary Dx) Social [...] - 15.8 g/dL 03/05/2021 1:25 PM CDT [facility] Blood Venipuncture / Unknown 03/05/2021 1:07 PM CDT 03/05/2021 1:16 PM CDT us Elaine Craig FACULTY PHYSICIAN, PUTTIER HEMATOLOGY ORDERABLES Fi nal Result [facility] [address] [place] [address], documented in this encounter Visit Diagnoses Diagnosis Preop testing- Primary Preoperative examination, unspecified documented in this encounter Care Teams Fondant Puff Maker Relationship Specialty Start Date End Date Thomas Patel MD [address] [place] [address] PCP - General Internal Medicine 03/05/21 documented as of this encounter
--- OUTSIDE RECORDS SUMMARY | 2025-03-21 15:17 | XMS_ITS | Clinical Summary ---
Author Organization [facility] Address [address] [place] [address] Phone Care Team Providers Care Director Of Accounts Receivable Name Role Phone Thomas Patel MD Primary Care Provider [phone] Allergies No known active allergies Medications metoprolol [...] patient's age to [place] [address] [employer] * Guarantor: [facility] Account Type Relation to Patient Date of Phone Billing Address Institutional Other 1868 [phone] (Work) ATTN: ERIN GUZMAN [address] [place] [address] Care Teams Director Of Accounts Receivable Relationship Specialty Start Date End Date Thomas Patel MD [address] [place] [address] PCP - General Internal Medicine 03/05/21
--- OUTSIDE RECORDS SUMMARY | 2025-03-21 15:17 | XMS_ITS | Encounter Summary ---
Author Organization [facility] Address [address] [facility] [place] [address] Phone Care Team Providers Care Room Service Bellhop Name Role Phone Thomas Patel MD Primary Care Provider [phone] Encounter Details Date Type Department Care Team (Latest Contact Info) Description 03/03/2021 Transcribe Orders [facility] Preop/Pacu II [address] [place] [address] Елена Montoya MD [address] [address] Preop testing (Primary Dx) Social [...] PREG TEST,MONOCLONAL Negative 03/05/2021 1:34 PM CDT [facility] Comment:Urine specimens with low specific gravity may not contain medical service representative levels of HCG. If is still suspected, a first morning urine specimen should be collected 48 hours later and tested. Urine Non-Phlebotomy Collection / Unknown 03/05/2021 1:07 PM CDT 03/05/2021 1:14 PM CDT us Елена Montoya MD URINE ORDERABLES Final Result [facility] [address] [place] [address], documented in this encounter Visit Diagnoses Diagnosis Preop testing- Primary Preoperative examination, unspecified documented in this encounter Care Teams Room Service Bellhop Relationship Specialty Start Date End Date Thomas Patel MD [address] [place], [place] [address] PCP - General Internal Medicine 03/05/21 documented as of this encounter
--- OUTSIDE RECORDS SUMMARY | 2025-03-21 15:17 | XMS_ITS | Patient Health Record ---
Author Organization [facility] Address [address] [place], [place] [id number] Care Team Providers Care Oral Communication Instructor Name Role Phone DOMINICK Slaughter Unavailable Sangeeta Vicente Unavailable Unavailable Reason For Referral No Information Medications Medication SIG (Take, Route, Frequency, Duration) Notes Start Date End Date Status buprenorphine 2 MG / naloxone 0.5 MG Sublingual Film [Suboxone] buprenorphine 2 MG / naloxone 0.5 MG Sublingual Film [Suboxone]Original Medicationbuprenorphine 2 MG / naloxone 0.5 MG Sublingual Film [Suboxone] *Reorder from [facility] for eRx and Interaction Alerts* 2 Active fexofenadine hydrochloride 180 MG Oral Tablet [Rossy] ORAL fexofenadine hydrochloride 180 MG Oral Tablet [Rossy]Original Medicationfexofenadine hydrochloride 180 MG Oral Tablet [Rossy] *Reorder from [facility] for eRx and Interaction Alerts* 2 Active Plan Of Treatment No Information
--- OUTSIDE RECORDS SUMMARY | 2025-03-21 15:17 | XMS_ITS | Encounter Summary ---
Author Organization [facility] Address [address] [facility] [place] [address] Phone Care Team Providers Care Professor Of Biostatistics Name Role Phone Thomas Patel MD Primary Care Provider [phone] Encounter Details Date Type Department Care Team (Late st Contact Info) Description 09/23/2020 Lab Requisition [facility] Laboratory Services [address] [place] [address] Thomas Patel MD [address] [place] [address] Social History Tobacco Use Types [...] WITH AUTO DIFFERENTIAL STAT 09/23/2020 9:00 AM MARKETING DIRECTOR COMPLETE BLOOD COUNT (CBC) WITH DIFF Routine 09/23/2020 9:00 AM MARKETING DIRECTOR documented in this encounter Results * (ABNORMAL) CBC WITH AUTO DIFFERENTIAL (09/23/2020 9:00 AM MARKETING DIRECTOR) WBC 8.91 4.00 - 12.00 10(3)/mcL 09/23/2020 10:43 AM MARKETING DIRECTOR [facility] RBC 4.76 3.80 - 5.30 10(6)/mcL 09/23/2020 10:43 AM MARKETING DIRECTOR [facility] HEMOGLOBIN (HGB) 8.6(L) 12.0 - 15.8 g/dL 09/23/2020 10:43 AM [facility] HEMATOCRIT (HCT) 30.9(L) 36.0 - 47.0 % 09/23/2020 10:43 AM [facility] MCV 64.9(L) 82.0 - 96.0 fL 09/23/2020 10:43 AM [facility] MCH 18.1(L) 26.0 - 34.0 pg 09/23/2020 10:43 AM [facility] MCHC 27.8(L) 31.0 - 36.0 g/dL 09/23/2020 10:43 AM [facility] PLATELET COUNT 527(H) 140 - 440 10(3)/[facility] 09/23/2020 10:43 AM [facility] RDW 23.9(H) 11.8 - 15.5 % 09/23/2020 10:43 AM [facility] MPV 9.7 9.7 - 12.4 fL 09/23/2020 10:43 AM [facility] NEUTROPHILS 60.8 47.0 - 73.0 % 09/23/2020 10:43 AM [facility] LYMPHOCYTES 29.6 18.0 - 42.0 % 09/23/2020 10:43 AM [facility] MONOCYTES 7.4 4.0 - 12.0 % 09/23/2020 10:43 AM [facility] EOSINOPHILS 1.3 0.0 - 5.0 % 09/23/2020 10:43 AM [facility] BASOPHILS 0.9 0.0 - 1.0 % 09/23/2020 10:43 AM [facility] ABSOLUTE NEUTROPHILS 5.41 1.60 - 7.70 10(3)/mcL 09/23/2020 10:43 AM [facility] ABSOLUTE LYMPHOCYTES 2.64 1.30 - 3.20 10(3)/mcL 09/23/2020 10:43 AM [facility] ABSOLUTE MONOCYTES 0.66 0.20 - 1.00 10(3)/[facility] 09/23/2020 10:43 AM MARKETING DIRECTOR [facility] ABSOLUTE EOSINOPHIL 0.12 0.00 - 0.40 10(3)/mcL 09/23/2020 10:43 AM MARKETING DIRECTOR [facility] ABSOLUTE BASOPHILS 0.08 0.00 - 0.10 10(3)/mcL 09/23/2020 10:43 AM MARKETING DIRECTOR [facility] NRBC PER 100 WBC 0 09/24/19 10:43 AM MARKETING DIRECTOR [facility] RESULTS ARE CONSISTENT WITH PERIPHERAL SMEAR REVIEW Yes 09/23/2020 10:43 AM [facility] RBC MORPHOLOGY CONSISTENT WITH INDICES Yes 09/23/2020 10:43 AM [facility] POIKILOCYTOSIS 2+ 09/23/2020 10:43 AM [facility] TARGET Present 09/23/2020 10:43 AM [facility] Blood No Phlebotomy Charged / Unknown 09/23/2020 9:00 AM MARKETING DIRECTOR 09/23/2020 9:52 AM MARKETING DIRECTOR us Thomas Patel MD HEMATOLOGY ORDERABLES Final Res ult [facility] [address] [place] [address], documented in this encounter Visit Diagnoses Not on filedocumented in this encounter Care Teams Professor Of Biostatistics Relationship Specialty Start Date End Date Thomas Patel MD [address] [place], [place] [address] PCP - General Internal Medicine 03/05/21 documented as of this encounter
--- OUTSIDE RECORDS SUMMARY | 2025-03-21 15:17 | XMS_ITS | Encounter Summary ---
Author Organization [facility] Address [address] [facility] [place] [address] Phone Care Team Providers Care Licensing Engineer Name Role Phone Thomas Patel MD Primary Care Provider [phone] Encounter Details Date Type Department Care Team (Late st Contact Info) Description 03/03/2021 [facility] [address] [place] [address] Елена Montoya MD [address] [address] Social History Tobacco Use Types [...] on filedocumented in this encounter Care Teams Licensing Engineer Relationship Specialty Start Date End Date Thomas Patel MD [address] [place], [place] [address] PCP - General Internal Medicine 03/05/21 documented as of this encounter
== END 2025-03-21 13:55 | disposition home or self-care (01) ==
PROVIDERS: PCP Family Medicine; Visit Provider Surgery
DX: K43.9 Ventral hernia without obstruction or gangrene (principal); K42.9 Umbilical hernia without obstruction or gangrene
CPT/HCPCS: 74176

== ENCOUNTER 2025-03-22 12:11 | Outpatient (CLI) | payer BC, SELFPAY ==
--- NOTE | ~2025-03-22 | MM_ITS ---
EXAMINATION: MM screening amilcar BI w yahir HISTORY: Screening TECHNIQUE: Craniocaudal and mediolateral oblique 3-D tomosynthesis images were obtained and synthetic 2-D images were generated. CAD analysis was submitted and interpreted. COMPARISON: Baseline BREAST PARENCHYMAL COMPOSITION: There are scattered areas of fibroglandular density. FINDINGS: No suspicious calcifications or architectural distortion. Asymmetry in the outer right breast, middle depth, seen in the right CC projection. Focal asymmetry in the left breast at the 12:00 position posterior depth. IMPRESSION: 1. Asymmetry in the outer right breast, middle depth, seen in the right CC projection. The study is incomplete. A diagnostic right breast mammogram and a diagnostic right breast ultrasound is recommended. 2. Focal asymmetry in the left breast at the 12:00 position posterior depth. The study is incomplete. A diagnostic left breast mammogram and a diagnostic left breast ultrasound is recommended. BI-RADS Category 0: Incomplete-needs additional imaging evaluation Reviewed, dictated and finalized at location Q. IMPRESSION: 1. Asymmetry in the outer right breast, middle depth, seen in the right CC proj ection. The study is incomplete. A diagnostic right breast mammogram and a diag nostic right breast ultrasound is recommended. 2. Focal asymmetry in the left breast at the 12:00 position posterior depth. Th e study is incomplete. A diagnostic left breast mammogram and a diagnostic left breast ultrasound is recommended. BI-RADS Category 0: Incomplete-needs additional imaging evaluation
--- OUTSIDE RECORDS SUMMARY | 2025-03-22 12:30 | XMS_ITS | Patient Health Record ---
Author Organization [facility] Address [address] [place], [place] [address] Care Team Providers Care Tubing Oiler Name Role Phone DOMINICK Slaughter Unavailable Sangeeta Vicente Unavailable Unavailable Reason For Referral No Information Medications Medication SIG (Take, Route, Frequency, Duration) Notes Start Date End Date Status buprenorphine 2 MG / naloxone 0.5 MG Sublingual Film [Suboxone] buprenorphine 2 MG / naloxone 0.5 MG Sublingual Film [Suboxone]Original Medicationbuprenorphine 2 MG / naloxone 0.5 MG Sublingual Film [Suboxone] *Reorder from [employer] for eRx and Interaction Alerts* 2 Active fexofenadine hydrochloride 180 MG Oral Tablet [Rossy] ORAL fexofenadine hydrochloride 180 MG Oral Tablet [Rossy]Original Medicationfexofenadine hydrochloride 180 MG Oral Tablet [Rossy] *Reorder from [employer] for eRx and Interaction Alerts* 2 Active Plan Of Treatment No Information
--- OUTSIDE RECORDS SUMMARY | 2025-03-22 12:30 | XMS_ITS | Clinical Summary ---
Author Organization [facility] Address [address] [place] [address] Phone Care Team Providers Care Manager Transmission Name Role Phone Thomas Patel MD Primary Care Provider [phone] Allergies No known active allergies Medications metoprolol [...] patient's age to complete [place] [address] deepl[employer] MEDICAL Infer * Guarantor: [facility] Account Type Relation to Patient Date of Phone Billing Address Institutional Other 1868 [phone] (Work) ATTN: ERIN GUZMAN [address] [place] [address] Care Teams Manager Transmission Relationship Specialty Start Date End Date Thomas Patel MD [address] [place] [address] PCP - General Internal Medicine 03/05/21
--- OUTSIDE RECORDS SUMMARY | 2025-03-22 12:30 | XMS_ITS | Patient Health Record ---
Author Organization [facility] Address [address] [place] [address] Support Name Relationship Address Phone Elaine Barillas Emergency Contact [address] [facility], [address] Kaila Barillas Guarantor Unknown Reason For Referral No Information Plan Of Treatment No Information
--- OUTSIDE RECORDS SUMMARY | 2025-03-22 12:30 | XMS_ITS | Encounter Summary ---
Author Organization [facility] Address [address] [facility] [place] [address] Phone Care Team Providers Care Blindstitch Lapel Padder Name Role Phone Thomas Patel MD Primary Care Provider Encounter Details Date Type Department Care Team (Latest Contact Info) Description 03/03/2021 Transcribe Orders [facility] Preop/Pacu II [address] [place] [address] Елена Montoya MD [address] [address] Preop testing (Primary Dx) Social [...] - 15.8 g/dL 03/05/2021 1:25 PM CDT [facility] Blood Venipuncture / Unknown 03/05/2021 1:07 PM CDT 03/05/2021 1:16 PM CDT us Elaine Craig AIRCRAFT ELECT[employer]ICAL SYSTEMS SPECIALIST, BURIAL NEEDS SALESPERSON HEMATOLOGY ORDERABLES Fi nal Result [facility] [address] [place] [address], documented in this encounter Visit Diagnoses Diagnosis Preop testing- Primary Preoperative examination, unspecified documented in this encounter Care Teams Blindstitch Lapel Padder Relationship Specialty Start Date End Date Thomas Patel MD [address] [place] [address] PCP - General Internal Medicine 03/05/21 documented as of this encounter
--- OUTSIDE RECORDS SUMMARY | 2025-03-22 12:30 | XMS_ITS | Encounter Summary ---
Author Organization [facility] Address [address] [facility] [place] [address] Phone Care Team Providers Care Adding Machine Servicer Name Role Phone Thomas Patel MD Primary Care Provider [phone] Encounter Details Date Type Department Care Team (Late st Contact Info) Description 09/23/2020 Lab Requisition [facility] Laboratory Services [address] [place] [address] Thomas Patel MD [address] [place] [address] Social History Tobacco Use Types [...] WITH AUTO DIFFERENTIAL STAT 09/23/2020 9:00 AM PROPERTY LOSS INSURANCE CLAIM ADJUSTER COMPLETE BLOOD COUNT (CBC) WITH DIFF Routine 09/23/2020 9:00 AM PROPERTY LOSS INSURANCE CLAIM ADJUSTER documented in this encounter Results * (ABNORMAL) CBC WITH AUTO DIFFERENTIAL (09/23/2020 9:00 AM PROPERTY LOSS INSURANCE CLAIM ADJUSTER) WBC 8.91 4.00 - 12.00 10(3)/mcL 09/23/2020 10:43 AM PROPERTY LOSS INSURANCE CLAIM ADJUSTER [facility] RBC 4.76 3.80 - 5.30 10(6)/mcL 09/23/2020 10:43 AM PROPERTY LOSS INSURANCE CLAIM ADJUSTER [facility] HEMOGLOBIN (HGB) 8.6(L) 12.0 - 15.8 g/dL 09/23/2020 10:43 AM [facility] HEMATOCRIT (HCT) 30.9(L) 36.0 - 47.0 % 09/23/2020 10:43 AM [facility] MCV 64.9(L) 82.0 - 96.0 fL 09/23/2020 10:43 AM [facility] MCH 18.1(L) 26.0 - 34.0 pg 09/23/2020 10:43 AM [facility] MCHC 27.8(L) 31.0 - 36.0 g/dL 09/23/2020 10:43 AM [facility] PLATELET COUNT 527(H) 140 - 440 10(3)/[facility] 09/23/2020 10:43 AM [facility] RDW 23.9(H) 11.8 - 15.5 % 09/23/2020 10:43 AM [facility] MPV 9.7 9.7 - 12.4 fL 09/23/2020 10:43 AM [facility] NEUTROPHILS 60.8 47.0 - 73.0 % 09/23/2020 10:43 AM [facility] LYMPHOCYTES 29.6 18.0 - 42.0 % 09/23/2020 10:43 AM [facility] MONOCYTES 7.4 4.0 - 12.0 % 09/23/2020 10:43 AM [facility] EOSINOPHILS 1.3 0.0 - 5.0 % 09/23/2020 10:43 AM [facility] BASOPHILS 0.9 0.0 - 1.0 % 09/23/2020 10:43 AM [facility] ABSOLUTE NEUTROPHILS 5.41 1.60 - 7.70 10(3)/mcL 09/23/2020 10:43 AM [facility] ABSOLUTE LYMPHOCYTES 2.64 1.30 - 3.20 10(3)/mcL 09/23/2020 10:43 AM [facility] ABSOLUTE MONOCYTES 0.66 0.20 - 1.00 10(3)/[facility] 09/23/2020 10:43 AM PROPERTY LOSS INSURANCE CLAIM ADJUSTER [facility] ABSOLUTE EOSINOPHIL 0.12 0.00 - 0.40 10(3)/mcL 09/23/2020 10:43 AM PROPERTY LOSS INSURANCE CLAIM ADJUSTER [facility] ABSOLUTE BASOPHILS 0.08 0.00 - 0.10 10(3)/mcL 09/23/2020 10:43 AM PROPERTY LOSS INSURANCE CLAIM ADJUSTER [facility] NRBC PER 100 WBC 0 09/24/19 10:43 AM PROPERTY LOSS INSURANCE CLAIM ADJUSTER [facility] RESULTS ARE CONSISTENT WITH PERIPHERAL SMEAR REVIEW Yes 09/23/2020 10:43 AM [facility] RBC MORPHOLOGY CONSISTENT WITH INDICES Yes 09/23/2020 10:43 AM [facility] POIKILOCYTOSIS 2+ 09/23/2020 10:43 AM [facility] TARGET Present 09/23/2020 10:43 AM [facility] Blood No Phlebotomy Charged / Unknown 09/23/2020 9:00 AM PROPERTY LOSS INSURANCE CLAIM ADJUSTER 09/23/2020 9:52 AM PROPERTY LOSS INSURANCE CLAIM ADJUSTER us Thomas Patel MD HEMATOLOGY ORDERABLES Final Res ult [facility] [address] [place] [address], documented in this encounter Visit Diagnoses Not on filedocumented in this encounter Care Teams Adding Machine Servicer Relationship Specialty Start Date End Date Thomas Patel MD [address] [place], [place] [address] PCP - General Internal Medicine 03/05/21 documented as of this encounter
--- OUTSIDE RECORDS SUMMARY | 2025-03-22 12:30 | XMS_ITS | Encounter Summary ---
Author Organization [facility] Address [address] [facility] [address] Phone Care Team Providers Care Electrical Solderer Name Role Phone Thomas Patel MD Primary Care Provider [phone] Encounter Details Date Type Department Care Team (Latest Contact Info) Description 03/03/2021 Transcribe Orders [facility] Preop/Pacu II [address] [place] [address] Елена Montoya MD [address] [address] Preop testing (Primary Dx) Social [...] PREG TEST,MONOCLONAL Negative 03/05/2021 1:34 PM CDT [facility] Comment:Urine specimens with low specific gravity may not contain housing management representative levels of HCG. If is still suspected, a first morning urine specimen should be collected 48 hours later and tested. Urine Non-Phlebotomy Collection / Unknown 03/05/2021 1:07 PM CDT 03/05/2021 1:14 PM CDT us Елена Montoya MD URINE ORDERABLES Final Result [facility] [address] [place] [address], documented in this encounter Visit Diagnoses Diagnosis Preop testing- Primary Preoperative examination, unspecified documented in this encounter Care Teams Electrical Solderer Relationship Specialty Start Date End Date Thomas Patel MD [address] [place], [place] [address] PCP - General Internal Medicine 03/05/21 documented as of this encounter
--- OUTSIDE RECORDS SUMMARY | 2025-03-22 12:30 | XMS_ITS | Encounter Summary ---
Author Organization [facility] Address [address] [facility] [place] [address] Phone Care Team Providers Care Awning Hanger Supervisor Name Role Phone Thomas Patel MD Primary Care Provider [phone] Encounter Details Date Type Department Care Team (Late st Contact Info) Description 03/03/2021 Transcribe [facility] [address] [place] [address] Елена Montoya MD [address] [address] Social History Tobacco Use Types [...] on filedocumented in this encounter Care Teams Awning Hanger Supervisor Relationship Specialty Start Date End Date Thomas Patel MD [address] [place], [place] [address] PCP - General Internal Medicine 03/05/21 documented as of this encounter
== END 2025-03-22 12:12 | disposition home or self-care (01) ==
LOC: CHSIMG 12:14
PROVIDERS: PCP Family Medicine; Visit Provider Family Medicine
DX: Z12.31 Encounter for screening mammogram for malignant neoplasm of breast (principal); R92.8 Other abnormal and inconclusive findings on diagnostic imaging of breast
CPT/HCPCS: 77063; 77067

== ENCOUNTER 2025-04-05 00:44 | Day surgery (SDC) | payer BC, MEDICAID, SELFPAY ==
[2025-03-28 10:25] VITALS: BMI 38.4
--- NOTE | 2025-03-28 10:26 | PC.NURSE ---
Report to the Outpatient Waiting Room, entrance under the green pavilion located off [facility], at time _1000_ on date _[phone]_. Planned Procedure Time: _1200_.? Time changes happen often and if your time is changed the preop area will call you the afternoon before. - You and your visitor will be asked to self-screen and do not enter if you have any COVID symptoms. Please call surgeon if you need to reschedule. - A mask is optional within the hospital at this time. Patients may have clear liquids (water, carbonated beverages, clear teas, apple juice) until 3 hours prior to surgery with a maximum of 20 ounces. - No food from midnight until time of surgery and no smoking, or chewing tobacco (or any form of nicotine). No chewing gum, candy or mints. Take only the following medications with a SIP of water on the morning of surgery: __Levothyroxine___ DO NOT STOP ANY OF YOUR OTHER PRESCRIPTION MEDICATIONS PRIOR TO SURGERY EXCEPT THE FOLLOWING Hold all vitamins and supplements for 3 days per anesthesiologist. Medications to discontinue per physician Date to take last dose Please no make-up, nail finnish, hairspray, perfume, deodorant, or body powder the day of surgery.? No jewelry (including any body piercings) or valuables the day of surgery, leave them at home.? Please take a shower or bath the night before, or the morning of, surgery with an antibacterial soap.? Wear comfortable, loose fitting clothing.? - Jewelry must be removed prior to entering the operating room.? Rings and piercings that are not removed may be cut off. - The hospital will not accept responsibility for valuables.? - Please leave all valuables, including medications, at home the day of surgery. If you are going home after surgery, a licensed electric truck driver must drive you home.? - NO public transportation without another adult if you receive anesthesia. - We recommend that an adult stay with you for 24 hours following discharge. - We also recommend that you do not drive, make important decision, drink alcoholic beverages, or take any drugs that were not prescribed by your health care provider for at least 24 hours after your discharge time. Follow any additional instructions given to you from your surgeon. Telephone instructions given to __Kaila___and asked if any additional questions and then verbalized understanding. Patient advised to call surgeon office or pre surgery nurse liaison [phone] if any additional questions.
[2025-04-05] VITALS (8 sets, daily range): BP systolic 109–140; BP diastolic 80–99; PULSE 76–94; RESP 16–20; TEMP 36.6–37.1; O2SAT 97–100
--- NOTE | ~2025-04-05 | XR_ITS ---
EXAMINATION: XR surgery orthopedic DATE: 04/05/2025 16:03 INDICATION: Left foot naviculocuneiform and tarsometatarsal arthrodesis TECHNIQUE: 3 fluoroscopic images of the left mid and forefoot were obtained during procedure performed by Dr. Rojas. Radiologist was not present for the imaging or procedure. The amount of fluoroscopy time used during this procedure was 2.0 minutes. Total DAP was 12.99 cGycm^2. COMPARISON: None. FINDINGS: Images demonstrate and midfoot arthrodesis with dorsal plate and screws extending between the navicula across the middle and lateral cuneiforms to the base of the second and third metatarsals. Osteotomy at the neck and lateral head of the fifth metatarsal, the former fixed with a pair of screws. Visualized alignment appears normal. No fractures identified. IMPRESSION: 1. Fluoroscopy utilized during instrumented midfoot arthrodesis extending from the navicular to the base of the second and third metatarsals likely realignment osteotomy with screw fixation at the neck of the fifth metatarsal. See procedure note for further detail. Reviewed, dictated and finalized at location A. IMPRESSION: 1. Fluoroscopy utilized during instrumented midfoot arthrodesis extending from the navicular to the base of the second and third metatarsals likely realignmen t osteotomy with screw fixation at the neck of the fifth metatarsal. See proced ure note for further detail.
[2025-04-05] MEDS: LACTATED RINGERS 1,000 ML 30 ML IV CONT (11:05)
--- NOTE | 2025-04-05 11:13 | P.PNAN_ITS ---
Anes - Initial Pre Proc Eval Procedure: Operation Date: 04/05/25 12:00 Proposed Procedures p Arthrodesis of Naviculocuneiform and Tarsometatarsal Joints Left Foot, Tailor's Bunionectomy Left Foot - Lydia Rojas DPM Date/Time: 04/05/25 11:13 Surgeon: Lydia Rojas DPM Pre Op Diagnosis: prim O.A. Lt Ankle & Foot Patient Data Age: 45 Gender: F Height: 1.8 m Weight: 133.3 kg Last Vital Signs Temp 37.1 C 04/05/25 10:40 Pulse 76 04/05/25 10:40 Resp 16 04/05/25 10:40 BP 140/99 H 04/05/25 10:40 Pulse Ox 100 04/05/25 10:40 O2 Del Method Room Air 04/05/25 10:40 Allergies Allergy/AdvReac Type Severity Reaction Status Date / Time No Known Allergies Allergy Verified 04/05/25 10:51 Home Medications ?Medication ?Instructions ?Recorded ?Confirmed ?Type levothyroxine 175 mcg tablet 175 mcg PO DAILY #30 tabs 03/02/25 04/05/25 Rx (Synthroid) Patient hx anesthesia problems: none Family hx anesthesia problems: none Results Review: All pre-operative results and documents have been reviewed as part of the pre- operative evaluation. [facility] Past Medical History Medical History Abnormal mammogram of both breasts History of Crohn's disease Edema Hypertension Surgical History Surgical History History of colon resection Family History Family History Father Diabetes mellitus Hypertension Social History Social History Smoking packs per day: 1 Smoking cigarettes per day: 20.0 Years smoked: 10 Smoking pack-years: 10.00 Smoking status: Former smoker Tobacco type: cigarettes Smoking end date: 03/28/15 Alcohol intake: never Substance use: never Substance use type: does not use Other substance usage details: Answered yes on have you ever given yourself drugs with a needle Do You Feel Safe in your Home?: Yes Lack of Transportation: No Lack of Food: Never True Current Housing: I Have Housing Concerned About Future Housing: No Difficulty Paying Gas/Electric Bills: No Difficulty Paying for Meds: No Currently Unemployed: No Education: High School Diploma/GED Difficulty w/ Childcare or Family Care: No Living arrangements: with family Spiritual care concerns: No Anes - Eval Final PreProcedure Day of Procedure 04/05/25 11:13 Patient weight: morbidly obese Heart: regular rate and rhythm Lungs: clear to auscultation Airway: Mallampati scale class II Neurological: alert and oriented Last oral intake: >/= 8 hours ASA classification: III Emergent: no Anesthetic plan: proceed Anesthesia type and monitoring: general LMA and standard monitoring Results Review: All pre-operative results and documents have been reviewed as part of the pre- operative evaluation. Informed Consent: The patient's anesthetic plan and its attendant risks and benefits were discussed with the patient/family/POA. Questions were solicited and answers provided to the satisfaction of the patient/family/POA.
--- NOTE | 2025-04-05 11:51 | PM.IMHP ---
H&P: [facility] History of Present Illness Date/Time: 04/05/25 11:51 Chief Complaint: Left foot arthritis and tailor's bunion Narrative: 45 F who has been seen in my office for many months for painful left foot arthritis and tailor's bunion. Pain is whenever patient is weight bearing for prolonged period of time, especially at work. The pain has limited patient's ability to do daily activities and work. Patient has exhausted many conservative treatments such as, but not limited to: immobilization, oral mediation, ankle bracing, orthotics, cortisone injections. None of these conservative treatments have offered relief of pain. At this time, patient is requesting surgical intervention. Surgical plan is left foot midfoot arthrodesis and tailors bunionectomy. Review of Systems Review of Systems: All systems reviewed & are unremarkable except as noted in HPI and below Musculoskeletal: Musculoskeletal: Reports as per HPI [facility] Past Medical History Medical History (Updated 04/05/25 @ 11:56 by Lydia Rojas DPM) Primary osteoarthritis, left ankle and foot Abnormal mammogram of both breasts History of Crohn's disease Edema Hypertension Surgical History Surgical History History of colon resection Family History Family History Father Diabetes mellitus Hypertension Social History Social History Smoking packs per day: 1 Smoking cigarettes per day: 20.0 Years smoked: 10 Smoking pack-years: 10.00 Smoking status: Former smoker Tobacco type: cigarettes Smoking end date: 03/28/15 Alcohol intake: never Substance use: never Substance use type: does not use Other substance usage details: Answered yes on have you ever given yourself drugs with a needle Do You Feel Safe in your Home?: Yes Lack of Transportation: No Lack of Food: Never True Current Housing: I Have Housing Concerned About Future Housing: No Difficulty Paying Gas/Electric Bills: No Difficulty Paying for Meds: No Currently Unemployed: No Education: High School Diploma/GED Difficulty w/ Childcare or Family Care: No Living arrangements: with family Spiritual care concerns: No Meds Home Medications and Allergies Home Medications ?Medication ?Instructions ?Recorded ?Confirmed ?Type levothyroxine 175 mcg tablet 175 mcg PO DAILY #30 tabs 03/02/25 04/05/25 Rx (Synthroid) Allergies Allergy/AdvReac Type Severity Reaction Status Date / Time No Known Allergies Allergy Verified 04/05/25 10:51 Vital Signs Vital Signs - 24 hr 04/05/25 10:40 Temperature 37.1 C Pulse Rate 76 Respiratory Rate 16 Blood Pressure 140/99 H Pulse Oximetry 100 Oxygen Delivery Room Air Exam Extrem: Other: Pedal pulses palpable 2/4 both dorsalis pedis & posterior tibial, bilateral Pain on palpation to left midfoot joints mainly to navicular, middle & lateral cuneiforms, and 2nd/3rd metatarsals. Pain on palpation to 5th metatarsal head and 5th metatarsophalangeal joint, left foot Painful range of motion of left midfoot joints and 5th metatarsophalangeal joint Protective sensation intact to digits, bilateral Normal skin turgor and no open lesions noted, bilateral Assessment and Plan Assessment and plan (1) Primary osteoarthritis, left ankle and foot: Code(s): M19.072 - Primary osteoarthritis, left ankle and foot Status: Acute (2) Other synovitis and tenosynovitis, left ankle and foot: Code(s): M65.872 - Other synovitis and tenosynovitis, left ankle and foot Status: Acute (3) Foot pain, left: Code(s): M79.672 - Pain in left foot Status: Acute (4) Tailor's bunion of left foot: Code(s): M21.622 - Bunionette of left foot Status: Acute Plan Left foot naviculocuneiform metatarsal arthrodeses of 2nd and 3rd rays Left foot tailor's bunionectomy with osteotomy
--- NOTE | 2025-04-05 11:57 | WPDHPUPDATE1 ---
History and Physical Update Update Date/Time: 04/05/25 11:57 History and Physical has been reviewed, including an updated exam of the patient. There are NO changes in the patient's condition. Risks, benefits, and alternatives have been discussed and questions answered. Patient agrees to proceed with procedure.
--- NOTE | 2025-04-05 12:13 | WPDANESPNB ---
Anes - Peripheral Nerve Block Date/Time: 04/05/25 12:13 I have discussed with the patient/family/POA the placement of a peripheral nerve block for post-operative pain management, including associated risks, benefits, complications, and side effects. Alternative methods of post-operative analgesia were detailed. Questions were solicited and answers provided to the satisfaction of the patient/family/POA. Time-Out: A pre-procedural Time-Out was completed immediately before starting the procedure and confirmed: Patient Identification, Site, Procedure, Patient Position and the Availability of Requisite Equipment. Clinical Indications: Acute post-operative pain management requested by the operative surgeon. Nerve Block Insertion Note Anes-nerve block: posterior fossa sciatic left Patient position: supine Skin prep: chlorhexidine Needle: 22 gauge, stimulating, insulated echogenic needle. Needle length: 120 mm Technique: nerve stimulation lost at (mA) (0.4) Injectate: bupivacaine 0.5% with epi 5 mcg/ml (32cc no epi) and dexamethasone (mg) (8) Observations: tolerated well Complications: none Procedure start time:: 120 Procedure end time:: 1206
[2025-04-05] MEDS: ceFAZolin 3 GM/D5W 100 ML 100 ML IVPB (12:28)
--- NOTE | 2025-04-05 15:59 | P.OPB_ITS ---
Procedure Note - Brief Procedure Note - Brief Date of procedure: 04/05/25 prim O.A. Lt [facility] Procedure performed: Left foot arthrodesis of naviculocuneiform tarsal metatarsal joints 2nd and 3rd ray Left foot tailor's bunionectomy Surgeon: Lydia Rojas DPM Findings: See operative report Description of procedure: See operative report Implants: [employer] 6 hole slim Y plate x2 2.7 mm non locking screws 2.5 x14 mm dart fire screw 2.0 x 12 mm dart fire screw 3 cc of augment Estimated blood loss (mL): 10 Complications: None Condition: Stable Disposition: Same day
--- NOTE | 2025-04-05 16:01 | W.PM.PROC2 ---
Procedure Note - Detailed Date of Procedure 04/05/25 Pre-op Diagnosis primary osteoarthritis (O.A.) Lt Ankle & Foot Tailor's bunion, left foot Post-op Diagnosis Same Procedure Performed 1) Left foot arthrodeses of naviculocuneiform metatarsal joints 2 and 3 2) Left foot tailor's bunionectomy Surgeon Lydia Rojas DPM Anesthesia General and Regional Indications The patient is a 45 year-old female with the above diagnoses.? The patient has exhausted conservative treatment at this time and now requests surgical intervention.? The patient signed the consent after careful explanation of risks, benefits, complication and alternatives for surgical procedure.? No guarantees were given nor implied. NPO status was confirmed prior to taking pt to the OR. Findings The patient was brought to the operating room and placed on the operating room table in supine position.? The patient received a left lower extremity popliteal block from anesthesia.?A well padded thigh tourniquet was placed to the left thigh and set to 300 mmHg. Once anesthesia was achieved, the left foot was then prepped and draped in usual sterile manner and procedure began. Description of Procedure 1) Left foot arthrodeses of cysuqbgyi-mrdteqirp-khczjyoxbd joints (2nd and 3rd rays) Prior to tourniquet inflation, the dorsalis pedis artery was felt and mapped out to avoid during the surgical procedure. A linear longitudinal incision was made overlying the exostosis using a #15 blade.? Dissection was carried through subcutaneous tissue using blunt dissection.. Care was taken to retract all vital structures and cauterizing them as necessary. The 2nd and 3rd tarsometatarsal joints (TMTJ) were identified clinically & using fluorscopy. A capsular incision was made using a #15 blade. There was an abundance of hypertrophic bone and osteophytes to the dorsal 2nd & 3rd tarsometatarsal joints and navicular middle/lateral cuneiform joints, completely obscuring the joints. The osteophytes & hypertrophic bone were removed using a bone ronjour and smoothed down with a bone rasp. Next, the joints were dissected free of their ligamentous attachments. Two k-wires were inserted, one in the 2nd metatarsal base and the other in the middle cuneiform, using a hintermann retractor, the joint was distracted. Denuded cartilage was noted to the 2nd tarsometatarsal joint.. Using the Aspen joint prep kit the articular cartilage was removed to the 2nd TMTJ. Then, the joint surfaces were fenestrated using a drill bit. The k-wires were removed and then placed in the base of the 3rd metatarsal and lateral cuneiform. Using a hintermann retractor, the joint was distracted. Denuded cartilage was noted to the 2nd tarsometatarsal joint (TMTJ). Using the [employer] joint prep kit, the articular cartilage was removed to the 2nd TMTJ. Then, the joint surfaces were fenestrated using a 2.0 drill bit. The k-wires were removed. Attention was then drawn to the navicular middle/lateral cuneiform joints. A capsular incision was made using a #15 blade. There was an abundance of hypertrophic bone and osteophytes to the dorsal of the joint. The osteophytes & hypertrophic bone were removed using a bone ronjour and smoothed down with a bone rasp. The joints were dissected free of their ligamentous attachments. Two k-wires were inserted, one in the navicular and the other in the middle cuneiform, using a hintermann retractor, the joint was distracted. Denuded cartilage was noted to the joint. Using the [employer] joint prep kit, the articular cartilage was removed and the joint surfaces were fenestrated with a 2.0 drill bit. The k-wires were removed. Two k-wires were inserted, one in the navicular and the other in the lateral cuneiform, using a hintermann retractor, the joint was distracted. Denuded cartilage was noted to the joint. Using the [employer] joint prep kit, the articular cartilage was removed and the joint surfaces were fenestrated with a 2.0 drill bit. At this time, all the joint surfaces were prepped and 3 cc of Augment were used to help facilitate bony fusion. Next, using the windlass mechanism, the 2nd & 3rd TMTJ and respective navicular cuneiform joints were compressed. A Aspen 6-hole slim Y plate was placed overlying the navicular-middle cuneiform-2nd metatarasl joint complex in preparation for insertion, placement was confirmed under fluoroscopy. Using the appropriate drill bits, the straight plate was drilled for using proper AO technique. The plate was filled with 2.7 locking screws proximally first. Then the middle compression slot was filled with a 2.7 non locking screw. The final distal slots of the plate were filled with 2.7 locking screws. Another Alexandra 6-hole slim Y plate plate was placed over the navicular-lateral cuneiform-3rd metatarasl joint complex and screws were inserted in the same fashion. Once the hardware was inserted. Excellent compression was noted across the fusion sites both clinically and fluroscopically. The capsular tissue was re-approximetd using 3-0 & 4-0 vicryl.. The subcutaneous tissue was re-approximted using 4-0 Monocryl. The skin was re-approximated using 3-0 Nylon. 2) Left foot Tailor's bunionectomy Attention was directed to the lateral aspect of the left foot where a tailor's bunion deformity was noted. A linear incision was made overlying the head of the 5th metatarsal extending to the midshaft using a #15 blade.?Dissection was carried through subcutaneous tissue using blunt & sharp dissection.. Care was taken to retract all vital structures and cauterizing them as necessary. Next, a linear capsulotomy was made using a #15 blade, exposing the head of the 5th metatarsal into the operative field. A lateral eminence was noted to the 5th metatarsal head and was excised using a sagittal saw. Next, a V-type through and through osteotomy was made starting in head of the metatarsal extending to the midshaft, with the dorsal arm made longer for fixation. The capital fragment was moved medially to correct the tailor's bunion deformity. Next, a temporary k-wire was used to fixate the osteotomy site while checking appropriate correction under fluorscopy. Next a 2.5 mm x 14 mm Alexandra dart fire screw was drilled for and inserted with compression noted across the osteotomy site. Then a 2.0 mm x 12 mm Aspen dart fire screw was drilled for and inserted with compression noted across the osteotomy site. The excess lateral shelf of bone was then excised using a sagittal saw and passed off the operative field. The surgical site was irrigated with normal saline. The capsular tissue was re-approximetd using 3-0 & 4-0 vicryl.. The subcutaneous tissue was re-approximted using 4-0 Monocryl. The skin was re-approximated using 4-0 Nylon. Final fluorscopic images were taken to ensure reduction of the deformities, proper hardware placement, and excellent compression across the osteotomy and arthrodeses sites. The left thigh tourniquet was released with immediate vascular return noted to the digits. The post-op dressing included xeroform, 4x4 gauze, a well padded posterior splint was applied to the left lower extremity with the patient?s left ankle at 90*. Post-Operative Condition:? The patient tolerated the anesthesia and procedure and proceeded to the recovery room with vital signs stable and neurovascular status intact to the left foot. The patient will follow up with me in office on an outpatient basis. Implants 6 hole slim Y plate x2 2.7 locking & non locking screws 3 cc augment 2.5 mm x 14 mm dart fire screw 2.0 mm x 12 mm dart fire screw Estimated Blood Loss 10 Complications None Condition Stable Disposition Same day
== END 2025-04-05 17:40 | disposition home or self-care (01) ==
PROVIDERS: PCP Family Medicine; Visit Provider Podiatrist Foot & Ankle Surgery
PROC: (CPT 28750; principal; 2025-04-05 12:00)
DX: M21.622 Bunionette of left foot (principal); M19.072 Primary osteoarthritis, left ankle and foot; M65.872 Other synovitis and tenosynovitis, left ankle and foot; G89.18 Other acute postprocedural pain; I10 Essential (primary) hypertension; K50.90 Crohn's disease, unspecified, without complications; E66.01 Morbid (severe) obesity due to excess calories; Z68.41 Body mass index [BMI] 40.0-44.9, adult; Z90.49 Acquired absence of other specified parts of digestive tract; Z87.891 Personal history of nicotine dependence
CPT/HCPCS: 64445; 28730; 28308; 99199; C1713; J0690; J1100; J1171; J2003; J2250; J2405; J2704; J3010; J7120